=== PATIENT | female | born 1955 | race Caucasian/White ===

== ENCOUNTER 2018-11-01 21:43 | Observation (INO) | payer OTHER ==
[2018-11-01 22:29] LABS: Absolute Lymphocytes (CBC) 2.3 K/uL (0.7-4.9); Absolute Monocytes 0.4 K/uL (0.1-1.3); Absolute Neutrophil 6.8 K/uL (1.8-8.0); Basophils % 1.3 % (0-1.3); Eosinophils % 0.3 % (0-4.4); Hematocrit 46.1 % (36.0-45.0); Monocytes % 4.4 % (3.3-12.3); RBC Red Blood Cell Count 5.15 M/uL (3.86-4.86)
[2018-11-01 22:48] LABS: Albumin 4.3 g/dL (3.4-5.0); Bilirubin Direct 0.4 mg/dL (0-0.2); Bilirubin Total 0.9 mg/dL (0.2-1.0); Potassium 3.6 mmol/L (3.5-5.1); Protein, Total 8.4 g/dL (6.4-8.2)
[2018-11-01] MEDS ORDERED: MORPHINE 4 MG/ML SYR ONE (23:05)
[2018-11-01] MEDS ORDERED: ONDANSETRON 4 MG/2 ML VIAL ONE (23:05)
[2018-11-01] MEDS ORDERED: NA CHLORIDE 0.9% 1,000 ML ONE (23:16)
--- NOTE | 2018-11-02 01:54 | ER ---
Nurse's Notes [facility] Name: Dora Aguilar Age: 63 yrs Sex: Female : 1955 Arrival Date: 11/01/2018 Time: 21:45 Bed 4 Private MD: Diagnosis: Elevated transaminases;RUQ abdominal pain Presentation: 11/01 22:00 Presenting complaint: Patient states: Pt reports abdominal and epigastric pain that ea wraps around chest that started this AM. Pt reports burning pain, with indigestion, bloating feeling and nausea. Pt reports she has been unable to eat or drink. Transition of care: patient was not received from another setting of care. Onset of symptoms. Onset of symptoms was November 01, 2018. Risk Assessment: Do you want to hurt yourself or someone else? Patient reports no desire to harm self or others. Initial Sepsis Screen: Does the patient meet any 2 criteria? Yes Does the patient have a suspected source of infection? No. Patient's initial sepsis screen is negative. Care prior to arrival: None. 22:00 Method Of Arrival: Ambulatory ea 22:00 Acuity: PARVEEN 3 ea Historical: - Allergies: 22:04 Betadine; ea 22:04 Erythromycin; ea 22:04 SHELLFISH; ea - Home Meds: 22:04 Zantac 150 mg Oral tab 1 tab once daily [Active]; Metoprolol Tartrate Oral [Active]; ea aspirin 325 mg Oral TbEC 1 tab once daily [Active]; Vitamin D Oral 1000 unit [Active]; 22:19 estradiol 0.025 mg/day apply one patch weekly [Active]; progesterone micronized Oral rr5 [Active]; Calcium Citrate + D Oral [Active]; Vitamin B-12 1,000 mcg Oral tab daily [Active]; brionna med 750 mg tablet [Active]; cranberry extract 500 mg oral cap [Active]; - PMHx: 22:04 Tachycardia; ea - PSHx: 22:04 tachycardia; Cholecystectomy; ea - Immunization history:: Adult Immunizations up to date. - Social history:: Smoking status: Patient/guardian denies using tobacco. - Ebola Screening: : No symptoms or risks identified at this time. Screenin:30 Abuse screen: Denies threats or abuse. Denies injuries from another. Nutritional rr5 screening: No deficits noted. Tuberculosis screening: No symptoms or risk factors identified. Fall Risk IV access (20 points). Total Otero Fall Scale indicates No Risk (0-24 pts). Assessment: 22:00 General: Appears in no apparent distress. uncomfortable, Behavior is calm, cooperative, rr5 appropriate for age. Pain: Complains of pain in abdomen Pain radiates to chest Pain currently is 10 out of 10 on a pain scale. Quality of pain is described as burning, aching, Pain began gradually, Is intermittent. 22:00 Neuro: Level of Consciousness is awake, alert, obeys commands, Oriented to person, rr5 place, time, situation, Appropriate for age. Cardiovascular: Capillary refill < 3 seconds Patient's skin is warm and dry. 22:00 Respiratory: Airway is patent Respiratory effort is even, unlabored, Respiratory rr5 pattern is regular, symmetrical. GI: Abdomen is round Bowel sounds present X 4 quads. Abdomen is tender to palpation in right upper quadrant Reports upper abdominal pain. : No signs and/or symptoms were reported regarding the genitourinary system. EENT: No signs and/or symptoms were reported regarding the EENT system. Derm: Skin is intact, Skin temperature is warm. Musculoskeletal: Capillary refill < 3 seconds, Range of motion: intact in all extremities. 23:32 Reassessment: patient is allergic to shellfish. ED provider informed by CT staff. rr5 patient will will to Ct scan without contrast. 03/07 00:20 Reassessment: Patient appears in no apparent distress at this time. Patient is alert, rr5 oriented x 3, equal unlabored respirations, skin warm/dry/pink. awaiting for ct result. 01:50 Reassessment: Patient appears in no apparent distress at this time. Patient is alert, rr5 oriented x 3, equal unlabored respirations, skin warm/dry/pink. asleep on bed comfortably. no complaints made. Patient states feeling better. Patient states symptoms have improved. 03:27 Reassessment: Patient appears in no apparent distress at this time. Patient is alert, rr5 oriented x 3, equal unlabored respirations, skin warm/dry/pink. awaiting for room assignment. 04:00 Reassessment: Patient appears in no apparent distress at this time. Patient is alert, rr5 oriented x 3, equal unlabored respirations, skin warm/dry/pink. seen and examined by dr. moreau with order made and carried out. Patient states feeling better. 04:26 Reassessment: dr. moreau wants to see first the troponin result before shifting the rr5 patient. 04:50 Reassessment: Patient appears in no apparent distress at this time. awaiting for rr5 troponin result. follow up to laboratory staff. 05:14 Reassessment: dr. moreau informed for the troponin level of < 0.02. rr5 Vital Signs: 11/01 22:05 BP 151 / 108; Pulse 102; Resp 18; Temp 97.8; Pulse Ox 100% ; Weight 68.04 kg; Height 5 ea ft. 4 in. (162.56 cm); Pain 10/10; 22:46 BP 157 / 90; Pulse 77; Resp 19; Pulse Ox 96% on R/A; tl2 23:00 BP 143 / 75; Pulse 95; Resp 18; Pulse Ox 99% 2 lpm ; rr5 03 00:00 BP 149 / 70; Pulse 90; Resp 16; Pulse Ox 99% 2 lpm ; rr5 00:30 BP 129 / 81; Pulse 75; Resp 17; Pulse Ox 97% ; rr5 01:00 BP 108 / 70; Pulse 74; Resp 15; Pulse Ox 98% ; rr5 02:00 BP 120 / 81; Pulse 86; Resp 13; Pulse Ox 100% ; rr5 03:00 BP 113 / 72; Pulse 69; Resp 13; Pulse Ox 97% ; rr5 04:00 BP 125 / 86; Pulse 68; Resp 14; Pulse Ox 97% on R/A; rr5 05:00 BP 110 / 77; Pulse 88; Resp 14; Pulse Ox 96% ; rr5 03 22:05 Body Mass Index 25.75 (68.04 kg, 162.56 cm) ea ED Course: 03 21:45 Patient arrived in ED. ag3 22:02 Triage completed. ea 22:02 Inserted saline lock: 20 gauge in right antecubital area, using aseptic technique. tl2 Blood collected. 22:06 Arm band placed on right wrist. Patient placed in an exam room, on a stretcher, on ea pulse oximetry. 22:07 Patient has correct armband on for positive identification. Placed in gown. Bed in low ea position. Call light in reach. Side rails up X2. 22:09 EKG done, by ED staff. ag4 22:29 Augustus Liu, MADONNA is Primary Nurse. rr5 22:51 Notified ED physician of a critical lab result(s). AST of 364 Dr Lamas notified. bb 22:56 Beau Lamas MD is Attending Physician. ps1 11/02 00:25 Abdomen In Process Unspecified. EDMS 01:53 Samy Mendoza MD is Hospitalizing Provider. ps1 03:00 Appears to be sleeping. rr5 03:36 Awaiting bed assignment. rr5 04:26 No provider procedures requiring assistance completed. Patient admitted, IV remains in rr5 place. intact, No redness/swelling at site. Pressure dressing applied. Administered Medications: 11/01 23:08 Drug: Zofran 4 mg Route: IVP; Site: right antecubital; rr5 11/02 03:28 Follow up: Response: No adverse reaction rr5 11/01 23:10 Drug: morphine 4 mg Route: IVP; Site: right antecubital; rr5 11/02 03:28 Follow up: Response: No adverse reaction rr5 11/01 23:12 Drug: NS 0.9% 1000 ml Route: IV; Rate: 1000 ml; Site: right antecubital; rr5 11/02 02:00 Follow up: Response: No adverse reaction; IV Status: Completed infusion; IV Intake: rr5 1000ml Intake: 02:00 IV: 1000ml; Total: 1000ml. rr5 Outcome: 01:54 Decision to Hospitalize by Provider. ps1 04:25 Admitted to Med/surg accompanied by tech, via stretcher, room 213, with chart, Report rr5 called to [facility] 04:25 Condition: stable 04:25 Instructed on the need for admit. 05:29 Patient left the ED. rr5 Signatures: Dispatcher [employer] EDMS Fiona Rose RN RN bb Knox, Taylor RN RN tl2 Graciela Rocha RN RN ea Singer, Phillip, MD MD ps1 Shanna Enamorado ag3 Augustus Liu, RN RN rr5 Thom Hedrick ag4
--- NOTE | 2018-11-02 01:55 | EDPHYS ---
Physician Documentation [facility] Name: Dora Aguilar Age: 63 yrs Sex: Female : 1955 Arrival Date: 11/01/2018 Time: 21:45 Bed 4 Private MD: ED Physician Beau Lamas HPI: 11/02 01:28 This 63 yrs old Female presents to ER via Ambulatory with complaints of ps1 Abdominal Pain. 01:28 patient with RUQ abdominal pain. She is s/p cholecystectomy remotely. States that she ps1 has a history of mildly elevated transaminases on the last evaluation when she was in the emergency department. Was not given a reason for diagnosis and did not have evaluation after. Patient states that the pain started today and radiating towards back. No hx of pancreatitis. . Historical: - Allergies: 11/01 22:04 Betadine; ea 22:04 Erythromycin; ea 22:04 SHELLFISH; ea - Home Meds: 22:04 Zantac 150 mg Oral tab 1 tab once daily [Active]; Metoprolol Tartrate Oral [Active]; ea aspirin 325 mg Oral TbEC 1 tab once daily [Active]; Vitamin D Oral 1000 unit [Active]; 22:19 estradiol 0.025 mg/day apply one patch weekly [Active]; progesterone micronized Oral rr5 [Active]; Calcium Citrate + D Oral [Active]; Vitamin B-12 1,000 mcg Oral tab daily [Active]; brionna med 750 mg tablet [Active]; cranberry extract 500 mg oral cap [Active]; - PMHx: 22:04 Tachycardia; ea - PSHx: 22:04 tachycardia; Cholecystectomy; ea - Immunization history:: Adult Immunizations up to date. - Social history:: Smoking status: Patient/guardian denies using tobacco. - Ebola Screening: : No symptoms or risks identified at this time. ROS: 11/02 01:28 Constitutional: Negative for fever, chills, and weight loss, Eyes: Negative for injury, ps1 pain, redness, and discharge, Cardiovascular: Negative for chest pain, palpitations, and edema, Respiratory: Negative for shortness of breath, cough, wheezing, and pleuritic chest pain, Back: Negative for injury and pain, MS/Extremity: Negative for injury and deformity, Skin: Negative for injury, rash, and discoloration, Neuro: Negative for headache, weakness, numbness, tingling, and seizure. Abdomen/GI: Positive for abdominal pain. Exam: 01:28 Constitutional: This is a well developed, well nourished patient who is awake, alert, ps1 and in no acute distress. Head/Face: Normocephalic, atraumatic. Eyes: Pupils equal round and reactive to light, extra-ocular motions intact. Lids and lashes normal. Conjunctiva and sclera are non-icteric and not injected. Chest/axilla: Normal chest wall appearance and motion. Nontender with no deformity. No lesions are appreciated. Cardiovascular: Regular rate and rhythm. No gallops, murmurs, or rubs. Normal PMI, no JVD. No pulse deficits. Respiratory: Lungs have equal breath sounds bilaterally, clear to auscultation and percussion. No rales, rhonchi or wheezes noted. No increased work of breathing, no retractions or nasal flaring. Skin: Warm, dry with normal turgor. Normal color with no rashes, no lesions, and no evidence of cellulitis. MS/ Extremity: Pulses equal, no cyanosis. Neurovascular intact. Full, normal range of motion. Neuro: Awake and alert, GCS 15, oriented to person, place, time, and situation. Cranial nerves II-XII grossly intact. Sensory grossly intact. 01:28 Abdomen/GI: Inspection: abdomen appears normal, Bowel sounds: normal, Palpation: moderate abdominal tenderness, in the right upper quadrant. Vital Signs: 11/01 22:05 BP 151 / 108; Pulse 102; Resp 18; Temp 97.8; Pulse Ox 100% ; Weight 68.04 kg; Height 5 ea ft. 4 in. (162.56 cm); Pain 10/10; 22:46 BP 157 / 90; Pulse 77; Resp 19; Pulse Ox 96% on R/A; tl2 23:00 BP 143 / 75; Pulse 95; Resp 18; Pulse Ox 99% 2 lpm ; rr5 03/07 00:00 BP 149 / 70; Pulse 90; Resp 16; Pulse Ox 99% 2 lpm ; rr5 00:30 BP 129 / 81; Pulse 75; Resp 17; Pulse Ox 97% ; rr5 01:00 BP 108 / 70; Pulse 74; Resp 15; Pulse Ox 98% ; rr5 02:00 BP 120 / 81; Pulse 86; Resp 13; Pulse Ox 100% ; rr5 03:00 BP 113 / 72; Pulse 69; Resp 13; Pulse Ox 97% ; rr5 04:00 BP 125 / 86; Pulse 68; Resp 14; Pulse Ox 97% on R/A; rr5 05:00 BP 110 / 77; Pulse 88; Resp 14; Pulse Ox 96% ; rr5 03 22:05 Body Mass Index 25.75 (68.04 kg, 162.56 cm) ea MDM: 11/01 23:20 Patient medically screened. ps1 11/01 22:03 Order name: Basic Metabolic Panel tl2 11/01 22:03 Order name: CBC with Diff tl2 11/01 22:03 Order name: Creatinine for Radiology; Complete Time: 22:57 tl2 11/01 22:03 Order name: Hepatic Function; Complete Time: 22:57 tl2 11/01 22:03 Order name: Lipase; Complete Time: 22:57 tl2 11/01 22:04 Order name: Basic Metabolic Panel; Complete Time: 22:57 EDMS 11/01 22:03 Order name: EKG; Complete Time: 22:04 tl2 11/01 22:04 Order name: CBC with Automated Diff; Complete Time: 22:57 EDMS 11/01 23:32 Order name: Abdomen EDMS 11/02 04:06 Order name: Troponin I EDMS 11/01 22:03 Order name: IV Saline Lock; Complete Time: 22:04 tl2 11/01 22:03 Order name: Labs collected and sent; Complete Time: 22:04 tl2 11/01 22:03 Order name: EKG - Nurse/Tech; Complete Time: 22:04 tl2 11/02 03:58 Order name: EKG Electrocardiogram; Complete Time: 04:23 EDMS Administered Medications: 23:08 Drug: Zofran 4 mg Route: IVP; Site: right antecubital; rr5 11/02 03:28 Follow up: Response: No adverse reaction rr5 11/01 23:10 Drug: morphine 4 mg Route: IVP; Site: right antecubital; rr5 11/02 03:28 Follow up: Response: No adverse reaction rr5 11/01 23:12 Drug: NS 0.9% 1000 ml Route: IV; Rate: 1000 ml; Site: right antecubital; rr5 11/02 02:00 Follow up: Response: No adverse reaction; IV Status: Completed infusion; IV Intake: rr5 1000ml Disposition: 11/02/18 01:54 Hospitalization ordered by Samy Mendoza for Observation. Preliminary diagnosis are Elevated transaminases, RUQ abdominal pain. - Bed requested for Telemetry/MedSurg (observation). - Status is Observation. rr5 - Condition is Stable. - Problem is an acute exacerbation. - Symptoms are unchanged. UTI on Admission? No Signatures: Dispatcher [employer] [facility] Jenni Corbin, RN RN cg Stefani Peña, RN RN tl2 Graciela Rocha, RN RN ea Beau Lamas MD MD ps1 Augustus Liu RN RN rr5 Corrections: (The following items were deleted from the chart) 11/01 23:32 22:58 Abdomen Pelvis W Con+CT.RAD.BRZ ordered. [facility] 11/02 04:10 01:54 Hospitalization Ordered by Samy Mendoza MD for Observation. Preliminary cg diagnosis is Elevated transaminases; RUQ abdominal pain. Bed requested for Telemetry/MedSurg (observation). Status is Observation. Condition is Stable. Problem is an acute exacerbation. Symptoms are unchanged. UTI on Admission? No. ps1 05:29 04:10 11/02/2018 01:54 Hospitalization Ordered by Samy Mendoza MD for Observation. rr5 Preliminary diagnosis is Elevated transaminases; RUQ abdominal pain. Bed requested for Telemetry/MedSurg (observation). Status is Observation. Condition is Stable. Problem is an acute exacerbation. Symptoms are unchanged. UTI on Admission? No. cg
[2018-11-02] MEDS ORDERED: ONDANSETRON 4 MG/2 ML VIAL IV PRN (04:36)
--- NOTE | 2018-11-02 05:37 | P.HP ---
Certification for Inpatient Patient admitted to: Observation With expected LOS: <2 Midnights Practitioner: I am a practitioner with admitting privileges, knowledge of patient current condition, hospital course, and medical plan of care. Services: Services provided to patient in accordance with Admission requirements found in Title 42 Section 412.3 of the Code of Federal Regulations Patient History Date of Service: 11/02/18 Reason for admission: abdominal pain History of Present Illness: Ms Aguilar is a 63 years old woman who came to ED complaining abdominal pain. Her symptoms started last night after having dinner. The pain was localized on epigastric area, radiated to both upper quadrants. She describe like burning pain, associated with nausea but no vomiting. She denied SOB or diaphoresis. She has had this kind of pain in the past. Her symptoms last for about 1 hour, and relived after receive morphine in ED. Lab work remarkable for elevated transaminases and alk phos. Records from 2017, already shows abnormal liver enzymes, however, she states that was not clear the etiology. EKG during pain episode shows ST depression in inferior leads. Subsequent EKG after abdominal pain resolved, shows normalized ST. Trop I negative. Allergies povidone-iodine [From Betadine] Allergy (Unverified 05/26/17 22:54) Unknown soap [From Betadine] Allergy (Unverified 05/26/17 22:54) Unknown erythromycin Allergy (Uncoded 05/26/17 22:54) Unknown SHELLFISH Allergy (Uncoded 05/26/17 22:54) Unknown Home medications list reviewed: Yes - Past Medical/Surgical History -: tachycardia -: abnormal liver enzymes -: cholecystectomy - Family History Family History: Reviewed- Non-Contributory - Social History Smoking Status: Never smoker Alcohol use: Yes CD- Drugs: No Place of Residence: Home Review of Systems 10-point ROS is otherwise unremarkable Physical Examination - Physical Exam General: Alert, In no apparent distress HEENT: Atraumatic, PERRLA, Mucous membr. moist/pink, EOMI, Sclerae nonicteric Neck: Supple, 2+ carotid pulse no bruit, No LAD, Without JVD or thyroid abnormality Respiratory: Clear to auscultation bilaterally, Normal air movement Cardiovascular: Regular rate/rhythm, Normal S1 S2 Gastrointestinal: Normal bowel sounds, Tenderness (epigastric area) Musculoskeletal: No tenderness Integumentary: No rashes Neurological: Normal speech, Normal strength at 5/5 x4 extr, Normal tone, Normal affect Lymphatics: No axilla or inguinal lymphadenopathy - Studies Laboratory Data (last 24 hrs) 11/01/18 22:00: Creatinine 0.86 11/01/18 22:00: WBC 9.7, Hgb 15.6 H, Hct 46.1 H, Plt Count 323 11/01/18 22:00: Sodium 139, Potassium 3.6, BUN 13, Creatinine 0.87, Glucose 137 H, Total Bilirubin 0.9, AST 364 H*, ALT 274 H, Alkaline Phosphatase 146 H, Lipase 212 Assessment and Plan - Problems (Diagnosis) (1) Abdominal pain Current Visit: Yes Status: Acute Qualifiers: Abdominal location: epigastric Qualified Code(s): R10.13 - Epigastric pain (2) Abnormal liver enzymes Current Visit: Yes Status: Acute (3) Abnormal EKG Current Visit: Yes Status: Acute - Plan Will admit the patient to the hospital due to epigastric pain with abnormal liver enzymes. CT abd/pelvis shows no acute abnormalities. Will order hepatitis panel, MRCP to R/O strictures, consult GI specialist. Also consult substation operator chief due to abnormal EKG during abdominal pain episode. She has normal Trop I, differential diagnosis include unstable angina. - Advance Directives Does patient have a Living Will: No Does patient have a Durable POA for Healthcare: No - Code Status/Comfort Care Code Status Assessed: Yes Code Status: Full Code
[2018-11-02] MEDS: NA CHLORIDE 0.9% 1,000 ML IV SCH ×2 (05:59→15:43)
[2018-11-02 06:40] LABS: Urine Appearance CLEAR; Urine Bilirubin NEGATIVE (NEG); Urine Blood NEGATIVE (NEG); Urine Color YELLOW; Urine Glucose NEGATIVE (NEG); Urine Protein NEGATIVE (NEG); Urine Specific Gravity 1.015 (1.005-1.030); Urine Urobilinogen 0.2 mg/dL (0.2-1.0)
[2018-11-02] MEDS: ASPIRIN 81 MG CHEWABLE TABLET PO SCH ×2 (06:41→09:00)
[2018-11-02 06:46] LABS: Urine Microscopic Reflex NO UMIC
[2018-11-02] MEDS ORDERED: METOPROLOL TARTRATE 5 MG/5 ML INJ IV PRN ×2 (07:28→07:30)
[2018-11-02 07:37] VITALS: BMI 25.7
[2018-11-02 07:44] LABS: HDL Cholesterol 69 mg/dL (40-60); LDL Cholesterol, Calculated 202 (<130); Troponin I < 0.02 ng/mL (0.0-0.045)
[2018-11-02] MEDS ORDERED: KCL 20 MEQ/100 mL IVPB 20 MEQ/100 ML BAG IV SCH (08:00)
[2018-11-02] MEDS ORDERED: ENOXAPARIN 40 MG/0.4 ML SQ SCH (09:00)
--- NOTE | 2018-11-02 10:21 | RAD REPORT ---
EXAM DESCRIPTION: CT - Abdomen Pelvis Wo Contrast - 11/02/2018 4:07 am CLINICAL HISTORY: The patient is 63 years old and is Female; RUQ pain, elevated transaminases. No or al contrast TECHNIQUE: Axial computed tomography images of the abdomen and pelvis without intravenous contrast. Sagittal and coronal reformatted images were created and reviewed. This CT exam was performed usi ng one or more of the following dose reduction techniques: automated exposure control, adjustment o f the mA and/or kV according to patient size, and/or use of iterative reconstruction technique. COMPARISON: CT chest, abdomen and pelvis without contrast dated May 26, 2017 (report not avail able). FINDINGS: LUNG BASES: Partial visualization of right subpleural nodule measuring 4 mm. Dependent subsegmental atelectasis bilaterally. No focal consolidation, pleural effusion or pneumothorax. HEART: Visualized heart is unremarkable. ABDOMEN: LIVER: Unremarkable. GALLBLADDER AND BILE DUCTS: Prior cholecystectomy. No ductal dilation. PANCREAS: Unremarkable. No ductal dilation. SPLEEN: Unremarkable. No splenomegaly. ADRENALS: Unremarkable. No mass. KIDNEYS AND URETERS: Partial visualization of 1.1 cm right renal hypodensity, likely cyst. No no r adiopaque stone, hydronephrosis or hydroureter. STOMACH AND BOWEL: Unremarkable. No obstruction. No mucosal thickening. PELVIS: APPENDIX: The appendix is seen and is within normal limits BLADDER: Unremarkable. No stones. REPRODUCTIVE: Unremarkable as visualized. ABDOMEN and PELVIS: INTRAPERITONEAL SPACE: Unremarkable. No free air. No significant fluid collection. BONES/JOINTS: No acute fracture. No dislocation. SOFT TISSUES: Small fat-containing umbilical hernia. Calcified right gluteal injection granuloma. VASCULATURE: Unremarkable. No abdominal aortic aneurysm. LYMPH NODES: Unremarkable. No enlarged lymph nodes. IMPRESSION: 1. No acute abdominal or pelvic abnormality. 2. Continued evidence of prior cholecystectomy mild extrahepatic ductal dilatation. 3. Partial characterization of 1.1 cm right renal hypodensity, likely cyst. Electronically signed by: Norman Vaca DO 11/02/2018 12:29 AM W[employer] INSTRUCTOR Due to temporary technical issues with the PACS/Fluency reporting system, reports are being signed by the in house radiologist as a courtesy to ensure prompt reporting. The interpreting radiologist is f ully responsible for the content of the report.
--- NOTE | 2018-11-02 10:44 | RAD REPORT ---
EXAM DESCRIPTION: MRICholangiogram11/02/2018 10:24 am CLINICAL HISTORY: Abdominal pain COMPARISON: November 01, 2018 CT scan TECHNIQUE: Magnetic resonance cholangiogram was performed. Mip reconstruction performed FINDINGS: The gallbladder has been removed Mild prominence of biliary tree is seen. A filling defect is not noted. Pancreatic duct is normal caliber IMPRESSION: Cholecystectomy. Mild prominence of the biliary tree probably is physiologic
--- NOTE | 2018-11-02 11:00 | RAD REPORT ---
EXAM DESCRIPTION: US - Abdomen Exam Limited - 11/02/2018 10:45 am CLINICAL HISTORY: Abdominal pain. COMPARISON: None. FINDINGS: The gallbladder has been removed. Mild prominence of the common bile duct is present. A stone within the duct is not seen IMPRESSION: Cholecystectomy Mild prominence of the common bile duct presumably is physiologic.
--- NOTE | 2018-11-02 12:33 | ECHO ---
HEIGHT: 5 ft 4 in WEIGHT: 150 lb 0 oz DATE OF STUDY: 11/02/[address]: Lino Michel MD 2-DIMENSIONAL: YES M.MODE: YES DOPPLER: YES COLOR FLOW: YES TDS: NO PORTABLE: NO DEFINITY: NO BUBBLE STUDY: NO DIAGNOSIS: ABNORMAL ECG CARDIAC HISTORY: CATHERIZATION: NO SURGERY: NO PROSTHETIC VALVE: NO PACEMAKER: NO MEASUREMENTS (cm) DIASTOLIC (NORMALS) SYSTOLIC (NORMALS) IVSd 0.9 (0.6-1.2) LA Diam 2.8 (1.9-4.0) LVEF 56% LVIDd 3.8 (3.5-5.7) LVIDs 2.8 (2.0-3.5) %FS 28% LVPWd 1.0 (0.6-1.2) Ao Diam 2.7 (2.0-3.7) 2 DIMENSIONAL ASSESSMENT: RIGHT ATRIUM: NORMAL LEFT ATRIUM: NORMAL RIGHT VENTRICLE: NORMAL LEFT VENTRICLE: NORMAL TRICUSPID VALVE: NORMAL MITRAL VALVE: NORMAL PULMONIC VALVE: NORMAL AORTIC VALVE: NORMAL PERICARDIAL EFFUSION: NONE AORTIC ROOT: NORMAL LEFT VENTRICULAR WALL MOTION: NORMAL DOPPLER/COLOR FLOW: NORMAL COMMENTS: NORMAL 2D ECHOCARDIOGRAM WITH DOPPLER. NO WALL MOTION ABNORMALITY. NO EFFUSION. TECHNOLOGIST: Nadya SANTIAGO
[2018-11-02] MEDS ORDERED: SODIUM CHLORIDE 0.9% 10ML INJ IV PRN (12:36)
--- NOTE | 2018-11-02 12:36 | P.PN ---
Subjective Date of Service: 11/02/18 Primary Care Provider: [place] Chief Complaint: abdominal pain Subjective: Improving Physical Examination - Vital Signs Temperature: 97.8 F Blood Pressure: 140/81 Pulse: 80 Respirations: 13 Pulse Ox (%): 95 - Physical Exam General: Alert, In no apparent distress, Oriented x3, Cooperative HEENT: Atraumatic Neck: Supple Respiratory: Clear to auscultation bilaterally, Normal air movement Cardiovascular: Normal pulses, Regular rate/rhythm Gastrointestinal: Normal bowel sounds, Soft and benign, Non-distended, No masses , No rebound, No guarding, Tenderness (Less pain to the epigastric region) Musculoskeletal: No erythema, No tenderness, No warmth Integumentary: No tenderness/swelling, No erythema, No warmth, No cyanosis Neurological: Normal speech, Normal strength at 5/5 x4 extr, Normal tone, Normal affect - Studies Laboratory Data (last 24 hrs) 11/01/18 22:00: Creatinine 0.86 11/01/18 22:00: WBC 9.7, Hgb 15.6 H, Hct 46.1 H, Plt Count 323 11/01/18 22:00: Sodium 139, Potassium 3.6, BUN 13, Creatinine 0.87, Glucose 137 H, Total Bilirubin 0.9, AST 364 H*, ALT 274 H, Alkaline Phosphatase 146 H, Lipase 212 Medications List Reviewed: Yes Assessment & Plan Discharge Plan: Home Plan to discharge in: 24 Hours Physician Review Additional Text: Impression: Epigastric abdominal pain, nausea and elevated liver function with noted prominence to the biliary system and mild intrahepatic ductal dilation History of gastritis History of tachycardia Hyperlipidemia Plan: Epigastric abdominal pain, nausea and elevated liver function with noted prominence to the biliary system and mild intrahepatic ductal dilation: Will keep the patient NPO. Will monitor closely. Will discuss with GI. Abdominal ultrasound and MRCP reviewed. Patient will likely require EGD/ERCP. Patient cleared by cardiology for intervention. Continue IV fluids. Continue to monitor closely. Await further recommendations from GI. History of gastritis: Will provide medication. History of tachycardia: Patient currently takes metoprolol. Will restart once able to take oral intake Hyperlipidemia: LDL elevated. Will hold off on medication due to elevated liver function. Time Spent Managing Pts Care (In Minutes): 55
[2018-11-02] MEDS ORDERED: PANTOPRAZOLE 40 MG INJ IVP SCH (13:00)
--- NOTE | 2018-11-02 13:03 | CON ---
Date of Consultation: 11/02/[address] Palmer' service on 11/02/2018. I saw the patient on 11/02/2018. Reason For Consultation: Abdominal pain and abnormal EKG. History Of Present Illness: Ms. Aguilar is a 63-year-old woman. Has no previous cardiac history, exc ept for occasional tachycardia, not an arrhythmia per se. She is status post cholecystectomy, has hi story of gastroesophageal reflux disease. She came in with abdominal pain. She describes pain start ing in the midepigastric region, feels like burning, starts 30 minutes after food. Was found to have nonspecific changes on the EKG with some ST depression inferiorly. This has been chronic. She also was found to have an AST of 364, ALT of 274, alkaline phosphatase of 146. There was a concern that she may have a common bile duct obstruction. Her hepatitis panel is pending. Echocardiogram is pend ing. Past Medical History: Otherwise negative. Allergies: IODINE AND ERYTHROMYCIN. Review of Systems: Negative. Social History: Negative. Family History: Negative. Medication: At home include metoprolol and Zantac. Physical Examination: Vital Signs: Stable. Afebrile. HEENT: Negative. Neck: Supple with no bruit. Chest: Clear to auscultation and percussion. Cardiac: Revealed a regular rhythm and rate without any murmurs, gallops, or rubs. Abdomen: Benign. Extremities: Revealed no clubbing, cyanosis, or edema. Diagnostic Data: As stated earlier. Impression And Plan: 1.Abnormal electrocardiogram, nonspecific changes. Echocardiogram is pending. 2.Abdominal pain, elevated liver function enzymes, status post cholecystectomy, possible common bile duct obstruction. Dr. Mata will be seeing the patient. She has had a negative ultrasound of th e liver. Negative CT of the abdomen. Hepatitis panel is pending. 3.History of gastroesophageal reflux disease. 4.History of tachycardia, nonspecific. Continue medical regimen. We will see if we find anything o n the echocardiogram prior to making any decision from a cardiac standpoint. We are not dealing with an acute coronary syndrome. VITALY/JULES Voice ID: [id number] Report ID: [id number]
--- NOTE | 2018-11-02 13:06 | EKG ---
Test Date: 2018-11-02 Test Time: 04:03:50 Clinical Support Associate: RR MEASUREMENT RESULTS: Intervals: Rate: 78 IL: 130 QRSD: 78 QT: 408 QTc: 465 [place]: P: 69 [place]: 130 QRS: 55 T: 44 INTERPRETIVE STATEMENTS: Normal sinus rhythm Normal ECG Compared to ECG 11/01/2018 22:03:13 ST (T wave) deviation no longer present Electronically Signed On 11-02-18 13:03:57 GALLEY STRIPPER by Lino Michel
--- NOTE | 2018-11-02 13:06 | EKG ---
Test Date: 2018-11-01 Test Time: 22:03:13 Layer Up: AG3 MEASUREMENT RESULTS: Intervals: Rate: 99 UT: 124 QRSD: 80 QT: 352 QTc: 451 [place]: P: 80 UT: 124 QRS: 73 T: 36 INTERPRETIVE STATEMENTS: Normal sinus rhythm Nonspecific ST abnormality Abnormal ECG Compared to ECG 05/26/2017 15:43:14 Short UT interval no longer present ST (T wave) deviation still present Electronically Signed On 11-02-18 13:03:58 DIRECTOR STUDENT UNION by Lino Michel
[2018-11-02 15:19] LABS: Troponin I < 0.02 ng/mL (0.0-0.045)
[2018-11-02 16:37] LABS: ALT/SGPT 195 U/L (12-78); AST/SGOT 126 U/L (15-37); Albumin 3.4 g/dL (3.4-5.0); Alkaline Phosphatase 118 U/L (45-117); Bilirubin Direct 0.1 mg/dL (0-0.2); Bilirubin Total 0.5 mg/dL (0.2-1.0); Protein, Total 6.8 g/dL (6.4-8.2)
[2018-11-02 16:45] VITALS: BP 139/79; TEMP 97.7
--- NOTE | 2018-11-02 18:22 | P.DS ---
Admission Date: 11/02/18 Discharge Date: 11/02/18 Primary Care Provider: [place] Disposition: TRANSFER TO [facility] Discharge Condition: GOOD Reason for Admission: abdominal pain Consultations: GI-Dr. Mata Cardiology-Dr. Michel Procedures: ECHO: Ejection fraction 56% LEFT VENTRICULAR WALL MOTION: NORMAL DOPPLER/COLOR FLOW: NORMAL COMMENTS: NORMAL 2D ECHOCARDIOGRAM WITH DOPPLER. NO WALL MOTION ABNORMALITY. NO EFFUSION. CT scan: COMPARISON: CT chest, abdomen and pelvis without contrast dated May 26, 2017 (report not available). FINDINGS: LUNG BASES: Partial visualization of right subpleural nodule measuring 4 mm. Dependent subsegmental atelectasis bilaterally. No focal consolidation , pleural effusion or pneumothorax. HEART: Visualized heart is unremarkable. ABDOMEN: LIVER: Unremarkable. GALLBLADDER AND BILE DUCTS: Prior cholecystectomy. No ductal dilation. PANCREAS: Unremarkable. No ductal dilation. SPLEEN: Unremarkable. No splenomegaly. ADRENALS: Unremarkable. No mass. KIDNEYS AND URETERS: Partial visualization of 1.1 cm right renal hypodensity , likely cyst. No no radiopaque stone, hydronephrosis or hydroureter. STOMACH AND BOWEL: Unremarkable. No obstruction. No mucosal thickening. PELVIS: APPENDIX: The appendix is seen and is within normal limits BLADDER: Unremarkable. No stones. REPRODUCTIVE: Unremarkable as visualized. ABDOMEN and PELVIS: INTRAPERITONEAL SPACE: Unremarkable. No free air. No significant fluid collection. BONES/JOINTS: No acute fracture. No dislocation. SOFT TISSUES: Small fat-containing umbilical hernia. Calcified right gluteal injection granuloma. VASCULATURE: Unremarkable. No abdominal aortic aneurysm. LYMPH NODES: Unremarkable. No enlarged lymph nodes. IMPRESSION: 1. No acute abdominal or pelvic abnormality. 2. Continued evidence of prior cholecystectomy mild extrahepatic ductal dilatation. 3. Partial characterization of 1.1 cm right renal hypodensity, likely cyst. MRCP: COMPARISON: November 01, 2018 CT scan TECHNIQUE: Magnetic resonance cholangiogram was performed. Mip reconstruction performed FINDINGS: The gallbladder has been removed Mild prominence of biliary tree is seen. A filling defect is not noted. Pancreatic duct is normal caliber IMPRESSION: Cholecystectomy. Mild prominence of the biliary tree probably is physiologic ABUS: COMPARISON: None. FINDINGS: The gallbladder has been removed. Mild prominence of the common bile duct is present. A stone within the duct is not seen IMPRESSION: Cholecystectomy Mild prominence of the common bile duct presumably is physiologic. Medical problem list: Epigastric abdominal pain, nausea and elevated liver function with noted prominence to the biliary system and mild intrahepatic ductal dilation, suspect common bile duct stone History of gastritis History of tachycardia Hyperlipidemia Brief History of Present Illness: 63-year-old female presented to emergency room with epigastric pain. Patient is new to the area. Patient has history of tachycardia and GERD. Patient reported epigastric pain that radiated to the back bilateral to the upper quadrant. Patient found have elevated liver function. Patient was admitted for further evaluation. Hospital Course: Patient presented with epigastric abdominal pain, nausea and elevated liver function. Patient with history of cholecystectomy. Patient has been having abdominal pain over the past several months. It has been getting worse over the last day. CT scan showed prominence to the biliary system and mild intrahepatic ductal dilation. MRCP and abdominal ultrasound showed prominence to the biliary system. Patient seen and evaluated by GI. GI suspects common bile duct stone. GI recommends endoscopic ultrasound and ERCP. We do not do endoscopic ultrasound at our facility. GI does not do ERCPs. Therefore GI recommends to transfer patient to [facility] to further address. Case discussed with [facility]. [facility] GI agrees with plan of care and transfer. I discussed case with hospitalist who had accepted the patient. Patient will be transferred for endoscopic ultrasound and ERCP. Patient currently stable this time. Continue IV fluids. Patient remains NPO. Patient with history of tachycardia. Patient seen and evaluated by Cardiology. Patient takes metoprolol. Echocardiogram unremarkable. Cardiology has cleared patient for procedure. Patient with elevated LDL indicative of hyperlipidemia. Will hold off on medication due to elevated liver function. This can be further evaluated as an outpatient. Patient with history of gastritis in the past. Her last EGD done 1 year ago in [facility] showed no significant ulcers. Patient was treated with PPI. Vital Signs/Physical Exam: Temp Pulse Resp BP Pulse Ox 97.7 F 83 14 139/79 96 11/02/18 16:00 11/02/18 16:00 11/02/18 16:00 11/02/18 16:00 11/02/18 16:00 General: Alert, In no apparent distress, Oriented x3, Cooperative HEENT: Atraumatic Neck: Supple Respiratory: Clear to auscultation bilaterally, Normal air movement Cardiovascular: Normal pulses, Regular rate/rhythm Gastrointestinal: Normal bowel sounds, Soft and benign, Non-distended, No masses , No rebound, No guarding, Tenderness (epigastric pain) Musculoskeletal: No erythema, No tenderness, No warmth Integumentary: No tenderness/swelling, No erythema, No warmth, No cyanosis Neurological: Normal speech, Normal strength at 5/5 x4 extr, Normal tone, Normal affect Laboratory Data at Discharge: WBC 9.7 K/uL (4.3-10.9) 11/01/18 22:00 Hgb 15.6 g/dL (12.0-15.0) H 11/01/18 22:00 Hct 46.1 % (36.0-45.0) H 11/01/18 22:00 Plt Count 323 K/uL (152-406) 11/01/18 22:00 Sodium 139 mmol/L (136-145) 11/01/18 22:00 Potassium 3.6 mmol/L (3.5-5.1) 11/01/18 22:00 BUN 13 mg/dL (7-18) 11/01/18 22:00 Creatinine 0.87 mg/dL (0.55-1.3) 11/01/18 22:00 Glucose 137 mg/dL (74-106) H 11/01/18 22:00 Total Bilirubin 0.5 mg/dL (0.2-1.0) 11/02/18 14:50 AST 126 U/L (15-37) H D 11/02/18 14:50 ALT 195 U/L (12-78) H 11/02/18 14:50 Alkaline Phosphatase 118 U/L (45-117) H 11/02/18 14:50 Troponin I < 0.02 ng/mL (0.0-0.045) 11/02/18 14:50 Triglycerides 55 mg/dL (<150) 11/02/18 07:00 Cholesterol 282 mg/dL (<200) H 11/02/18 07:00 HDL Cholesterol 69 mg/dL (40-60) H 11/02/18 07:00 Cholesterol/HDL Ratio 4.09 11/02/18 07:00 Lipase 212 U/L (73-393) 11/01/18 22:00 Home Medications: Calcium Carbonate/Vitamin D3 [Calcium 500 mg-Vit D3 600 Unit] 1 tab PO DAILY 03/16 Cranberry Fruit Extract [Cran-Max] 1 cap PO DAILY 11/02/18 Estradiol 1 each TD SEECOM 11/02/18 Metoprolol Tartrate [Lopressor*] 0.5 mg PO SEECOM 11/02/18 Ranitidine [Zantac*] 1 tab PO BID 11/02/18 Vit B12/Lmefolate Ca/Vit B6/B2 [Metafolbic Tablet] 1,000 mcg PO DAILY 11/02/18 Vit D3/Folic Acid/B2/B6/B12 [Folgard Tablet] 1,000 iu PO DAILY 11/02/18 Patient Discharge Instructions: 1. Patient be transferred to [facility] for endoscopic ultrasound an ERCP. Patient cleared by cardiology for procedure. Diet: NPO Activity: Ad sam Time spent managing pt's care (in minutes): 55
[2018-11-02 22:42] VITALS: O2SAT 97
[2018-11-08 03:02] LABS: HBsAG Nonreactive (Nonreactive); Hepatitis A IgM Antibody Nonreactive
== END 2018-11-02 22:02 | disposition short-term general hospital (02) ==
LOC: ER 21:43 → ERHOLD 11-02 03:59 → 2ND 11-02 05:17
PROVIDERS: ADMIT Internal Medicine; ATTEND Internal Medicine
DX: R10.13 Epigastric pain (principal); R11.0 Nausea; K83.8 Other specified diseases of biliary tract; R74.8 Abnormal levels of other serum enzymes; Q44.5 Other congenital malformations of bile ducts; E78.5 Hyperlipidemia, unspecified; Z90.49 Acquired absence of other specified parts of digestive tract
CPT/HCPCS: 36415; 74176; 74181; 76705; 80048; 80061; 80074; 80076; 81003; 83690; 84484; 85025; 93005; 93306; 96361; 96374; 96375; 99285; C9113; G0378; J1650; J2405; J7030